=== PATIENT | female | born 1955 | race Caucasian/White ===

== ENCOUNTER 2024-09-23 14:00 | Emergency (ER) | payer MEDICARE, SELFPAY ==
[2024-09-23 14:04] VITALS: BP 130/80
--- NOTE | 2024-09-23 15:41 | ED.GENMED ---
History of Present Illness
General
Chief Complaint: Extremity Pain (non-traumatic)
Time Seen by Provider: 09/23/24 14:51
History of Present Illness
History of Present Illness:
69-year-old female presents to the emergency department for evaluation of bruising and discomfort to the left upper arm after venipuncture 3 days ago. She is concerned because she will be traveling on a long international flight this week and is
worried about a possible blood clot.
Review of Systems
Review of Systems
Allergies reviewed?: Yes
Phy Exam
Physical Exam
Physical Exam:
GEN: Well appearing, NAD, WDWN
HEENT: Oral mucosa moist, no scleral icterus
Cardiac: Regular rate
Lung: No respiratory distress, no tachypnea
MSK: Minor ecchymosis with tender vein to the left upper arm, no erythematous streaking
Skin: Good color, no pallor or jaundice, no rashes
Neuro: AO x3, moves all extremities freely
Psych: Calm, cooperative
Course
Orders/Labs/Results
Orders:
Orders
09/23/24 14:08
US Periph Venous UPPER Ext LT Urgent
Comment:
Reason For Exam: pain/swelling after phlebotomy
Vital Signs
Initial and Last Documented VS:
Initial Vital Signs
Temp Pulse Resp BP Pulse Ox
98.8 F 90 18 130/80 99
09/23/24 14:04 09/23/24 14:04 09/23/24 14:04 09/23/24 14:04 09/23/24 14:04
Last Documented Vital Signs
Temp Pulse Resp BP Pulse Ox
98.8 F 90 18 130/80 99
09/23/24 14:04 09/23/24 14:04 09/23/24 14:04 09/23/24 14:04 09/23/24 14:04
MDM/Problems Addressed
MDM/Problems Addressed:
Findings compatible with venous hematoma versus minor superficial thrombophlebitis, recommend NSAIDs and warm compresses
*Critical Care Note
Total Time (30-74mins, 75-104mins- exclusive of procedures): Not Applicable
ED Attending Note
-
Portions of this chart may have been created with voice recognition software.� Occasional wrong word or��sound alike� substitutions may have occurred due to the inherent limitations of voice recognition software.
Discharge Plan
Departure
Patient Disposition: Home (Routine Discharge)
Date of Disposition: 09/23/24
Time of Disposition: 16:11
Patient with high blood pressure during this ER visit?: No
Discharge Problem:
Phlebitis of superficial vein of upper extremity
Instructions: Superficial vein phlebitis and thrombosis
Activity Restrictions/Additional Instructions:
Take 325mg aspirin once daily for 7-10 days
Warm compresses twice daily
Interventions
Interventions:
*Risk Screen - Suicide Last Done: 09/23/24 14:04
*General Assessment Last Done: 09/23/24 14:04
*Neglect/Abuse Screening Last Done: 09/23/24 14:04
*ED COVID-19 Vaccine History Last Done: 09/23/24 14:04
Discharge Date and Time
Print Language: PORTUGUESE
== END 2024-09-23 16:50 | disposition home or self-care (01) ==
LOC: EMR 14:00
PROVIDERS: EMERGENCY PHYSICIAN Emergency Medicine; FAMILY PHYSICIAN Family Medicine
DX: I80.8 Phlebitis and thrombophlebitis of other sites (principal)
CPT/HCPCS: 99284; 93971